=== PATIENT | female | born 1970 | race Caucasian/White ===

== ENCOUNTER → 2017-08-18 | Outpatient (CLI) | payer BC ==
--- NOTE | 2017-08-18 12:04 | REP ---
Right elbow for views: There is a nondisplaced fracture of the radial head. I suspect there is hemarthrosis. Mineralization and joint spaces are normal. There is no dislocation. Impression: Nondisplaced radial head fracture and hemarthrosis. Signed by Pavan Washington MD 08/18/2017 11:55 A
--- NOTE | 2017-08-18 12:05 | REP ---
Right wrist four views : There is no fracture or dislocation. Mineralization and joint spaces are normal. There are no calcifications or foreign bodies. Impression: Negative right wrist . Signed by Pavan Washington MD 08/18/2017 11:55 A
== END ==
LOC: M WUC 10:41
PROVIDERS: ATTEND Physician Assistant
DX: M79.603 Pain in arm, unspecified (principal)

== ENCOUNTER 2018-11-03 07:08 | Emergency (ER) | payer BC ==
[2018-11-03 08:00] LABS: BASO % 0.3 % (0.0-1.0); EOS # 0.1 10^3/uL (0.0-0.50); EOS % 1.5 % (0.0-3.0); HEMATOCRIT 40.1 % (36.0-47.0); HEMOGLOBIN 13.2 g/dl (12.0-15.5); IMMATURE GRANULOCYTE % 0.3 % (0-3.0); LYMPH # 2.7 10^3/uL (1.5-4.5); LYMPH % 31.2 % (24.0-44.0); MEAN CORPUSCULAR HGB CONC 32.9 g/dl (32.0-36.5); MEAN CORPUSCULAR VOLUME 91.1 fl (80.0-96.0); MONO # 0.6 10^3/uL (0.0-0.8); MONO % 7.3 % (0.0-5.0); NEUTROPHILS # 5.2 10^3/uL (1.8-7.7); NEUTROPHILS % 59.4 % (36.0-66.0); PLATELET COUNT, AUTOMATED 316 10^3/uL (150-450); WHITE BLOOD COUNT 8.8 10^3/uL (4.0-10.0)
[2018-11-03 08:07] LABS: D-DIMER QUANT 436.51 ng/ml (<500)
[2018-11-03 08:19] LABS: ALBUMIN 3.7 GM/DL (3.2-5.2); ALBUMIN/GLOBULIN RATIO 0.97 (1.00-1.93); ALKALINE PHOSPHATASE 36 U/L (45-117); ALT/SGPT 19 U/L (12-78); ANION GAP 6 MEQ/L (8-16); AST/SGOT 12 U/L (7-37); BILIRUBIN,DIRECT 0.1 MG/DL (0.0-0.2); BILIRUBIN,TOTAL 0.3 MG/DL (0.2-1.0); BLOOD UREA NITROGEN 23 MG/DL (7-18); CALCIUM LEVEL 8.2 MG/DL (8.5-10.1); CARBON DIOXIDE LEVEL 27 MEQ/L (21-32); CHLORIDE LEVEL 106 MEQ/L (98-107); CK-MB VALUE MASS < 1.0 NG/ML (<3.6); CPK CREATINE PHOSPHOKINASE 69 U/L (26-192); CREATININE FOR GFR 0.83 MG/DL (0.55-1.30); FREE T4 1.05 NG/DL (0.76-1.46); GLOMERULAR FILTRATION RATE > 60.0 (>58); GLUCOSE, FASTING 112 MG/DL (70-100); LIPASE 151 U/L (73-393); MB/CK RELATIVE INDEX 1.45 (< OR =4); POTASSIUM SERUM 3.9 MEQ/L (3.5-5.1); SODIUM LEVEL 139 MEQ/L (136-145); TOTAL PROTEIN 7.5 GM/DL (6.4-8.2); TROPONIN I < 0.02 NG/ML (< 0.10)
== END 2018-11-03 09:20 | disposition home or self-care (01) ==
LOC: M ED 07:08
DX: N95.1 Menopausal and female climacteric states (principal); F41.9 Anxiety disorder, unspecified; F32.9 Major depressive disorder, single episode, unspecified; R07.89 Other chest pain; Z79.899 Other long term (current) drug therapy
CPT/HCPCS: 71045

== ENCOUNTER 2019-07-26 22:22 | Emergency (ER) | payer BC ==
[~2019-07-26] VITALS: Ht 167.6 cm; Wt 77.7 kg
[~2019-07-26 22:22] MED LIST: ACET-683 PO; BUPR150T3; BUPR300T34 PO; CEPH500C PO; GNP1000T11 PO; HYDR-4571 PO; HYDR-643 PO; MELO15TA28 PO; SERT25TA88 PO; ZOLP6.25 PO
[2019-07-26 22:23] VITALS: BP 152/93
[2019-07-26] MEDS ORDERED: EXCETAB33 PO (22:38)
[2019-07-26] MEDS ORDERED: NORC1TAB7 PO (22:58)
[2019-07-26] MEDS ORDERED: KEFL500C17 PO (22:58)
[2019-07-26] MEDS ORDERED: cefTRIAXone SOD 1 GM VIAL (J0696) IM ONE (23:00)
[2019-07-26] MEDS ORDERED: LIDOCAINE 1% SDV 5 ML VIAL DILUENT ONE (23:00)
[2019-07-26] MEDS ORDERED: NORCO 5/325MG TABLET (BULK FOR ED) PO ONE (23:00)
[2019-08-02] MEDS ORDERED: TAMO20TA8 PO (08:51)
[2019-08-02] MEDS ORDERED: VENL75CA47 PO (08:52)
== END 2019-07-26 23:14 | disposition home or self-care (01) ==
LOC: M ED 22:22
DX: L03.313 Cellulitis of chest wall (principal); Z98.890 Other specified postprocedural states; Z90.11 Acquired absence of right breast and nipple; Z90.12 Acquired absence of left breast and nipple; Z79.82 Long term (current) use of aspirin; Z79.899 Other long term (current) drug therapy
CPT/HCPCS: 96372; 99283; J0696

== ENCOUNTER → 2020-10-05 | Outpatient (REF) | payer BC ==
[~2020-10-05] MED LIST changes: +ALBU8.5H; +AMPH1CAP16; +AMPH1CAP16 PO; +BD I1MIS14 SC; -BUPR300T34 PO; +BUPR300T92 PO; +CYAN1000VL IM; +CYAN1000VL SC; +DICL1GEL3; +EXCETAB33 PO; +FLUT1INH3; +HYDR200T3; +KEFL500C17 PO; +MONT10TA4; +NORC1TAB7 PO; +OMEP-218 PO; +SERT25TA21 PO; -SERT25TA88 PO; +TAMO20TA8 PO; +VENL150C43 PO; +VENL75CA47 PO; +VITA100054 PO; +VITA50005 PO; +VYVA30CA4 PO; -ZOLP6.25 PO; +ZOLP6.2517 PO
[2020-10-05 13:55] LABS: C REACTIVE PROTEIN QUANTITATIV < 0.30 MG/DL (0.00-0.30); HEPATITIS B SURFACE ANTIGEN NEGATIVE (NEGATIVE)
[2020-10-10 15:08] LABS: CYCLIC CITRULLINATED PEPTIDE 9 units (0-19); HEPATITIS B CORE ANTIBODY IGG Negative (Negative); HLA-B27 Negative (.)
== END ==
LOC: M SFHCRHEU 08:55
PROVIDERS: ATTEND Internal Medicine
DX: M25.50 Pain in unspecified joint (principal)

== ENCOUNTER → 2020-11-14 | Outpatient (CLI) | payer BC ==
[~2020-11-14] MED LIST changes: -MONT10TA4; +MONT5TAB2
--- NOTE | 2020-11-14 09:20 | REPVR ---
PROCEDURE INFORMATION: Exam: MR Pelvis Without Contrast, Sacrum Exam date and time: 11/14/2020 8:31 AM Age: 50 years old Clinical indication: Pelvic pain; Additional info: Sacral ilac pain TECHNIQUE: Imaging protocol: Magnetic resonance images of the pelvis without intravenous contrast. COMPARISON: No relevant prior studies available. FINDINGS: Limitations: Lack of intravenous contrast material limits evaluation of the vascular and visceral structures. Intraperitoneal space: Trace free fluid within the pelvis, within physiologic range. Reproductive: Simple 2.2 cm left ovarian cyst. Simple 1.8 cm right ovarian cyst. Incidental cervical nabothian cysts. IUD appears appropriately positioned within the uterus. Large subserosal fibroid within the posterior uterine fundus. This measures 5.4 x 4.8 x 4.8 cm. Tiny intramural fibroid within the left posterior uterus, measuring 0.7 x 0.8 x 0.8 cm. Small intramural fibroid in the right uterine body, measuring 1.4 x 1.4 x 1.4 cm. The uterus is retroflexed. Uterus measures 13.1 cm x 6.9 cm x 6.9 cm. No abnormal thickening of the endometrium. The junctional zone measures up to 19 mm in thickness. Minimal cystic change within the junctional zone. Findings are suggestive of adenomyosis. Bones/joints: Degenerative endplate changes at L4-L5 and L5-S1. Moderate disc space narrowing at L4-L5. Severe disc space narrowing at L5-S1. Prominent dorsal disc osteophyte complex at L4-L5. Severe spinal canal stenosis and mild bilateral neural foraminal narrowing at L4-L5. Small dorsal disc osteophyte complex at L5-S1. Mild spinal canal stenosis, minimal left neural foraminal narrowing, and moderate right neural foraminal narrowing. Right S1 perineural cyst, measuring 12 mm x 9 mm. Tiny left S2 perineural cyst, measuring 5 mm x 4 mm. Left S3 perineural cyst, measuring 9 mm x 7 mm. Right S3 perineural cyst, measuring 6 mm x 5 mm. No sacroiliac joint effusion. No significant sacroiliac joint DJD. No erosions associated with the sacroiliac joints. Minimal bilateral hip joint DJD. There appear to be bilateral acetabular labral tears. No acute fracture. Normal alignment of the lower lumbar spine and sacrum. Soft tissues: Mild dorsal subcutaneous edema. IMPRESSION: 1. Enlarged fibroid uterus and adenomyosis. 2. Several sacral perineural cysts. 3. Degenerative endplate changes, disc space narrowing and dorsal disc osteophyte complexes at L4-L5 and L5-S1. 4. Bilateral acetabular labral tears. Electronically signed by: Karely Marie On 11/14/2020 09:20:35 AM
== END ==
LOC: M RAD 07:36
PROVIDERS: ATTEND Internal Medicine
DX: R93.7 Abnormal findings on diagnostic imaging of other parts of musculoskeletal system (principal); M53.3 Sacrococcygeal disorders, not elsewhere classified

== ENCOUNTER → 2021-01-04 | Outpatient (REF) | payer BC, OTHER ==
[~2021-01-04] MED LIST changes: -BUPR150T3; +BUPR150T4; +MONT10TA10; -MONT5TAB2
== END ==
LOC: M LAB REF 15:18
PROVIDERS: ATTEND Physician Assistant
DX: L57.0 Actinic keratosis (principal)

== ENCOUNTER → 2021-01-31 | Outpatient (REF) | payer OTHER ==
[~2021-01-31] MED LIST changes: +BUPR150T12; -BUPR150T4; +CLAR10CA3 PO; +TRIA1CR80 TOP
== END ==
LOC: M LAB REF 17:11
PROVIDERS: ATTEND Physician Assistant
DX: R21 Rash and other nonspecific skin eruption (principal); L53.9 Erythematous condition, unspecified

== ENCOUNTER → 2021-04-27 | Outpatient (REF) | payer OTHER ==
[2021-04-27 16:45] LABS: BASO % 0.3 % (0.0-1.0); EOS # 0.1 10^3/uL (0.0-0.5); EOS % 1.5 % (0.0-3.0); HEMATOCRIT 37.7 % (36.0-47.0); HEMOGLOBIN 12.2 g/dl (12.0-15.5); LYMPH # 2.7 10^3/uL (1.5-5.0); LYMPH % 28.3 % (24.0-44.0); MEAN CORPUSCULAR HEMOGLOBIN 29.7 pg (27.0-33.0); MEAN CORPUSCULAR HGB CONC 32.4 g/dl (32.0-36.5); MEAN CORPUSCULAR VOLUME 91.7 fl (80.0-96.0); MONO # 0.8 10^3/uL (0.0-0.8); NEUTROPHILS # 5.8 10^3/uL (1.5-8.5); NEUTROPHILS % 61.6 % (36.0-66.0); PLATELET COUNT, AUTOMATED 263 10^3/uL (150-450); RED BLOOD COUNT 4.11 10^6/uL (4.00-5.40); WHITE BLOOD COUNT 9.4 10^3/uL (4.0-10.0)
[2021-04-27 17:07] LABS: ALBUMIN 3.9 GM/DL (3.2-5.2); ALT/SGPT 28 U/L (12-78); BILIRUBIN,TOTAL 0.3 MG/DL (0.2-1.0); BLOOD UREA NITROGEN 28 MG/DL (7-18); CALCIUM LEVEL 8.9 MG/DL (8.5-10.1); CARBON DIOXIDE LEVEL 27 MEQ/L (21-32); CHLORIDE LEVEL 110 MEQ/L (98-107); COMPLEMENT C3 116 MG/DL (90-180); COMPLEMENT C4 28 MG/DL (10-40); CREATININE FOR GFR 0.77 MG/DL (0.55-1.30); GLOMERULAR FILTRATION RATE > 60.0 (>51); GLUCOSE, FASTING 97 MG/DL (70-100); POTASSIUM SERUM 3.8 MEQ/L (3.5-5.1); SODIUM LEVEL 142 MEQ/L (136-145); TOTAL PROTEIN 7.4 GM/DL (6.4-8.2)
[2021-04-27 17:24] LABS: APPEARANCE, URINE HAZY (CLEAR); BACTERIA, URINE AUTO NEGATIVE (NEGATIVE); BILIRUBIN, URINE AUTO NEGATIVE (NEGATIVE); BLOOD, URINE BLOOD 3+ (NEGATIVE); COLOR, URINE YELLOW (YELLOW); GLUCOSE, URINE (UA) AUTO NEGATIVE (NEGATIVE); KETONE, URINE AUTO TRACE mg/dL (NEGATIVE); LEUKOCYTE ESTERASE, URINE AUTO NEGATIVE (NEGATIVE); MUCUS, URINE SMALL (NEGATIVE); NITRITE, URINE AUTO NEGATIVE (NEGATIVE); PROTEIN, URINE AUTO NEGATIVE (NEGATIVE); RBC, URINE AUTO 23 /HPF (0-3); SQUAMOUS EPITHELIAL CELL UR AU 1 /HPF (0-6); UROBILINOGEN, URINE AUTO 0.2 mg/dL (0.0-2.0); WBC, URINE AUTO 0 /HPF (0-3)
[2021-04-27 17:35] LABS: ERYTHROCYTE SEDIMENTATION RATE 10 mm/hr (0-30)
[2021-04-30 15:30] LABS: ANTI DS-DNA AB Negative (Negative); SSA SJOGRENS A 0.3 AI (0.0-0.9); SSB SJOGRENS B <0.2 AI (0.0-0.9)
== END ==
LOC: M SFHCRHEU 14:42
PROVIDERS: ATTEND Internal Medicine Rheumatology
DX: M06.4 Inflammatory polyarthropathy (principal); H16.203 Unspecified keratoconjunctivitis, bilateral

== ENCOUNTER → 2023-07-10 | Outpatient (REF) | payer OTHER ==
[~2023-07-10] MED LIST changes: +DICL100G10; -DICL1GEL3; +ERGO500029 PO; +EXCETAB32 PO; -EXCETAB33 PO; +GABA-1171 PO; -HYDR200T3; +HYDR200T46; +METO1TAB32; -MONT10TA10; +MONT10TA97 PO; +OMEP-173 PO; -OMEP-218 PO; +VITA100093 PO; -VITA50005 PO; +[UNRECOGNIZED DRUG - CODE] PO
== END ==
LOC: M SFHCRHEU 09:15
PROVIDERS: ATTEND Internal Medicine Rheumatology
DX: M06.4 Inflammatory polyarthropathy (principal); M51.36 Other intervertebral disc degeneration, lumbar region; L30.9 Dermatitis, unspecified; H16.203 Unspecified keratoconjunctivitis, bilateral; Z79.899 Other long term (current) drug therapy; M89.49 Other hypertrophic osteoarthropathy, multiple sites

== ENCOUNTER → 2024-07-20 | Outpatient (CLI) | payer OTHER ==
[~2024-07-20] MED LIST changes: +ATOM40CA9; +BACTDSTA; +BUPR-597 PO; -BUPR300T92 PO; +PROHANCE 279.3MG/ML 15ML VIAL ONE; -ZOLP6.2517 PO; +ZOLP6.2526 PO
== END ==
LOC: M PLAIMG 08:09
PROVIDERS: ATTEND Internal Medicine Medical Oncology
DX: C50.919 Malignant neoplasm of unspecified site of unspecified female breast (principal)